=== PATIENT | female | born 1995 ===

== ENCOUNTER → 2021-06-17 | Outpatient (CLI) | payer OTHER | END | disposition home or self-care (01) | LOC: LAB 10:25 → LAB SHORT 10:25 | DX: D22.4 Melanocytic nevi of scalp and neck (principal); D22.5 Melanocytic nevi of trunk; D22.72 Melanocytic nevi of left lower limb, including hip; L08.9 Local infection of the skin and subcutaneous tissue, unspecified; B07.8 Other viral warts; L02.222 Furuncle of back [any part, except buttock and flank]; L90.5 Scar conditions and fibrosis of skin; L81.8 Other specified disorders of pigmentation; L81.4 Other melanin hyperpigmentation; Z71.89 Other specified counseling | CPT/HCPCS: 87070; 87205 ==

== ENCOUNTER → 2024-05-10 | Outpatient (CLI) | payer OTHER ==
[2024-05-16 08:04] LABS: HPV HIGH RISK BY TMA Not Detected; HPV SOURCE Cervical
== END ==
LOC: LAB 09:45 → LAB SHORT 09:45
PROVIDERS: Physician Assistant
DX: Z01.419 Encounter for gynecological examination (general) (routine) without abnormal findings (principal)
CPT/HCPCS: 87624; G0123